=== PATIENT | male | born 1980 | race Caucasian/White ===

== ENCOUNTER 2022-09-22 13:33 | Outpatient (CLI) | payer OTHER, SELFPAY ==
--- NOTE | 2022-09-22 14:15 | USCV_ITS ---
Michael Soto Age: 42 Gender: M : 1980 Exam Date: 09/22/2022 14:15 Ordering Phys: Rodrigo Ramos STUDENT SERVICES VICE PRESIDENT XX Technologist: Dee Ramirez Exam Location: [facility] – [place] Indication: sob on exertion BP: 132 / 87 HR: 69 Rhythm: Sinus Technical Quality: Adequate MEASUREMENTS (Male / Female) Normal Values 2D ECHO LV Diastolic Diameter PLAX 4.7 cm 4.2 - 5.9 / 3.9 - 5.3 cm LV Systolic Diameter PLAX 3.6 cm IVS Diastolic Thickness 1.2 cm 0.6 - 1.0 / 0.6 - 0.9 cm IVS Systolic Thickness 1.3 cm LVPW Diastolic Thickness 0.9 cm 0.6 - 1.0 / 0.6 - 0.9 cm LVPW Systolic Thickness 1.3 cm LVOT Diameter 2.0 cm LV Ejection Fraction 2D Teich 46.6 % LV Ejection Fraction MOD 2C 61.2 % LV Ejection Fraction 2C AL 61.5 % LA Diameter 2.5 cm LA Width 3.9 cm LA Height 4.8 cm RA Width 3.9 cm RA Height 4.2 cm Aorta at Sinotubular Diameter 3.1 cm IVC Diameter 1.2 cm M-MODE MV E Point Septal Separation 0.7 cm DOPPLER AV Peak Velocity 137.0 cm/s LVOT Peak Velocity 119.0 cm/s AV Area Cont Eq vti 2.6 cm squared AV Area Cont Eq pk 2.9 cm squared MV Peak Velocity 82.0 cm/s MV Area PHT 4.5 cm squared Mitral E to A Ratio 1.3 MV E' Velocity 58.4 cm/s Mitral E to MV E' Ratio 6.6 Mitral E to LV E' Lateral Ratio 6.4 Mitral E to LV E' Septal Ratio 6.8 TR Peak Velocity 134.3 cm/s TR Peak Gradient 7.2 mmHg Right Atrial Pressure 3.0 mmHg Pulmonary Artery Systolic Pressu 10.2 mmHg PV Peak Velocity 109.0 cm/s RV Acceleration Time 0.1 s RV Ejection Time 0.3 s RV AcT/ET 0.5 FINDINGS Left Ventricle Normal left ventricular size and systolic function, EF 55 %. No regional wall motion abnormalities. Right Ventricle The right ventricle is normal in size and function. Right Atrium The right atrium is normal in size. Left Atrium The left atrium is normal in size. Mitral Valve No gross abnormalities noted Aortic Valve No gross abnormalities noted Tricuspid Valve No gross abnormalities noted Pulmonic Valve No gross abnormalities noted Pericardium Normal pericardium without effusion. Aorta Normal aortic annulus size. IVC Normal inferior vena cava. CONCLUSIONS Normal left ventricular size and systolic function, EF 55 %. No regional wall motion abnormalities. Normal cardiac chamber sizes. No significant valvular abnormalities noted There is no pericardial effusion. No similar previous studies are available for comparison Dr Ernesto Grider MD FACC (Electronically Signed) Final Date: 23 September 2022 12:02 S
== END 2022-09-22 13:34 | disposition home or self-care (01) ==
LOC: RAD 13:35
PROVIDERS: PCP Nurse Practitioner Family; Visit Provider Nurse Practitioner Family
DX: R06.02 Shortness of breath (principal)
CPT/HCPCS: 93306